=== PATIENT | female | born 1985 | race Caucasian/White ===

== ENCOUNTER 2018-03-03 11:51 | Observation (INO) | payer BC ==
[2018-03-03 12:53] LABS: Appearance,Urine Clear (Clear); Bilirubin,Urine Negative (Negative); Blood,Urine Negative (Negative); Color,Urine Yellow; Glucose,Urine (UA) Negative (Negative); Ketones,Urine Negative (Negative); Leukocyte Esterase,Urine Negative (Negative); Nitrite,Urine Negative (Negative); Protein,Urine Negative (Negative); Specific Gravity,Urine 1.014 (1.001-1.035); Urobilinogen,Urine <2.0 mg/dL (<2.0)
[2018-03-03 13:30] LABS: Basophils % (A) 0 %; Eosinophils # (A) 0.1 k/uL (0-0.7); Eosinophils % (A) 1 %; HCT 38.2 % (34.0-46.0); HGB 12.8 gm/dL (11.4-16.0); Lymphocytes # (A) 1.7 k/uL (1.0-4.8); Lymphocytes % (A) 15 %; MCH 31.4 pg (25.0-35.0); MCHC 33.4 g/dL (31.0-37.0); MCV 94.1 fL (80.0-100.0); Mean Platelet Volume 7.4; Monocytes # (A) 0.6 k/uL (0-1.0); Monocytes % (A) 5 %; Neutrophils # (A) 8.8 k/uL (1.3-7.7); Neutrophils % (A) 78 %; Platelet Count 194 k/uL (150-450); RBC 4.06 m/uL (3.80-5.40); RDW 13.1 % (11.5-15.5); WBC 11.3 k/uL (3.8-10.6)
--- NOTE | 2018-03-03 15:10 | US ---
EXAMINATION TYPE: US abdomen APPY DATE OF EXAM: 03/03/2018 COMPARISON: NONE CLINICAL HISTORY: RIGHT QUADRANT PAIN. RLQ pain x 2 days, patient is 23 weeks APPENDIX Appendix not seen with certainty at this time due to enlarged gravid uterus and overlying bowel. IMPRESSION: Nonvisualization of the appendix
--- NOTE | 2018-03-03 15:13 | US ---
EXAMINATION TYPE: US abdomen complete DATE OF EXAM: 03/03/2018 COMPARISON: NONE CLINICAL HISTORY: abdominal pain possible appendix. RLQ pain x 2 days, patient is 23 weeks , patient ate 4-5 hours prior to exam. EXAM MEASUREMENTS: Liver Length: 13.5 cm Gallbladder Wall: 0.2 cm CBD: 0.3 cm Spleen: 12.5 cm Right Kidney: 10.5 x 4.7 x 4.2 cm Left Kidney: 10.6 x 5.3 x 4.9 cm Difficult and limited study due to patient Pancreas: visualized portions wnl, limited by overlying midline bowel gas Liver: wnl Gallbladder: wnl Evidence for sonographic Barker's sign: no CBD: wnl Spleen: wnl Right Kidney: wnl Left Kidney: wnl Upper IVC: wnl Abd Aorta: visualized portions wnl, limited by overlying midline bowel gas No significant abnormality seen at this time to account for patient's clinical symptoms. The liver is homogenous. The intrahepatic portion of the IVC and proximal abdominal aorta are within normal limits. There is no evidence of cholelithiasis. Common bile duct is unremarkable. The visu alized portions of the pancreas are homogenous. The spleen is unremarkable. Kidneys are symmetric a nd free of hydronephrosis. No renal lesions are seen. IMPRESSION: Limited exam. No significant abnormalities evident.
--- NOTE | 2018-03-03 15:47 | US ---
EXAMINATION TYPE: US OB >= 14 wk fetus DATE OF EXAM: 03/03/2018 COMPARISON: None CLINICAL HISTORY: abdominal painRLQ pain x 2 days, 1, patient has history of fibroids. TECHNIQUE: Transabdominal (TA) GESTATIONAL AGE / DATING Physician Established: (22 weeks/5 days) EDC: 07/02/2018 Dates by LMP: Unknown Dates by First Scan: No previous here Dates by Current Scan: (21 weeks/4 days) EDC: 07/10/2018 SURVEY IUP: Single PLACENTA: Anterior PREVIA: No Previa NHAN: 12.5 cm Normal CERVICAL LENGTH (transabdominal: norm > 3.0cm): 3.4 cm BIOMETRY PRESENTATION: Vertex LIE: Longitudinal BPD: 5.2 cm 21 weeks / 5 days HC: 19.4 cm 21 weeks / 6 days AC: 16.9 cm 21 weeks / 6 days FL: 3.7 cm 21 weeks / 6 days ESTIMATED WEIGHT IN GRAMS: 457 grams ESTIMATED WEIGHT IN LBS/OZ: 1 lbs. 0 oz. WEIGHT PERCENTAGE BASED ON ESTABLISHED DATES: 11% HC/AC: 1.15 Normal FL/AC: 22.14 Normal HEART RATE: 153 bpm RHYTHM: Normal Viable single IUP measuring 21 weeks 4 days with a heart rate of 153bpm and an estimated delivery bob e of 07/10/2018, 7.0 x 5.2 x 5.4cm hypoechoic heterogeneous area right uterus, possible fibroid. IMPRESSION: Single viable intrauterine corresponding to ultrasound age of 21 weeks 4 days with an estim ated delivery date of 07/10/2018 by today's exam, limited survey. Fibroid uterus.
--- NOTE | 2018-03-03 17:18 | P.HPOB ---
History of Present Illness H&P Date: 03/03/18 Chief Complaint: Regnancy 22 weeks: Intractable pain Patient is a 32-year-old at 22 weeks gestation who arrived complaining of a one-day history of right lower quadrant pain. She relates that her pain began sometime yesterday and has progressed point where it was significantly were for 6-8 out of 10. At this time is approximately 4 out of 10. A thorough evaluation and workup has been done to try to elucidate the potential cause for pain. Initially due to where it was located a consideration for appendicitis versus kidney stone was made, however no white blood cell count was noted and there was no blood in her urine. Ultrasound was unable to visualize the appendix but there was no hiatal ureter or other sign of kidney stone. On evaluation her pain is predominantly located in the right lower to right middle abdomen, she does have some involuntary guarding initially when I push I thought she was guarding on to a great degree but after ultrasound shows a large 7 cm fibroid I suspect what was pushing on was the fibroid that felt firm and it was actually not her guarding is much as I had thought. There are no real peritoneal signs heal Was overall negative she did relate that it did increase her pain a little bit but not to any large margin and rebound was also negative. At this time I cannot completely exclude the possibility of an appendicitis we will repeat the CBC in the morning and do observation. However , I suspect she has some either degeneration of her fibroid uterus or a torsional partial torsion of that pedunculated fibroid. The fibroid in comparison to her last ultrasound is approximately 1 cm larger which is not what I would expect for uterus outgrowing its blood supply, however at this time the fibroid is the most likely source of her pain. We did discuss possible options of hopefully simply controlling her pain and allowing the fibroid to stabilize. We did discuss the possibility that should he continue to degenerate and cause severe unremitting pain is possible she would need surgical intervention. This would increase her risk for labor and other complications, and likely if that was needed would plan transfer to a maternal medicine or tertiary care center as a precaution. All the questions are answered for her at this time will plan observational care tonight heart tones were noted earlier today and no other abnormality is been found. Plan for repeat CBC in the morning as well. Past Medical History History of Any Multi-Drug Resistant Organisms: None Reported Smoking Status: Never smoker Medications and Allergies Home Medications Medication Instructions Recorded Confirmed Type Pnv No.95/Ferrous Fum/Folic AC 1 tab PO DAILY 03/03/18 03/03/18 History [ Multivitamin Tablet] Allergies Allergy/AdvReac Type Severity Reaction Status Date / Time No Known Allergies Allergy Verified 03/03/18 12:05 Exam Osteopathic Statement: *. No significant issues noted on an osteopathic structural exam other than those noted in the History and Physical/Consult. Vital Signs Temp Pulse Resp BP 03/03/18 12:06 98.2 F 78 16 100/65 Intake and Output 03/03/18 03/03/18 03/03/18 06:59 14:59 22:59 Other: Weight 68.492 kg - OBG Physical Exam Abdomen: diffuse tenderness Abdomen detail: right lower quadrant: tenderness Results Result Diagrams: 03/03/18 13:20 Abnormal Lab Results - Last 24 Hours (Table) 03/03/18 Range/Units 13:20 WBC 11.3 H (3.8-10.6) k/uL Neutrophils # 8.8 H (1.3-7.7) k/uL
[2018-03-03] MEDS ORDERED: Acetaminophen-Codeine 300-30mg TAB PO PRN (17:20)
[2018-03-03 17:39] VITALS: BMI 29.5
[2018-03-03 20:32] VITALS: RESP 16
[2018-03-03] MEDS ORDERED: ONDANSETRON 4 MG/2 ML VIAL IVP STA (20:52)
[2018-03-03] MEDS ORDERED: LACTATED RINGERS 1,000 ML IV ONE (21:00)
[2018-03-04] MEDS: LACTATED RINGERS 1,000 ML IV SCH ×2 (01:49→02:42)
[2018-03-04] MEDS ORDERED: ACETAMINOPHEN IV (For NPO) 1,000 MG in EMPTY BAG 1 BAG IVPB STA (02:48)
[2018-03-04 06:53] LABS: Basophils % (A) 0 %; Eosinophils # (A) 0.1 k/uL (0-0.7); Eosinophils % (A) 1 %; HCT 34.7 % (34.0-46.0); HGB 11.9 gm/dL (11.4-16.0); Lymphocytes # (A) 1.5 k/uL (1.0-4.8); Lymphocytes % (A) 15 %; MCH 32.1 pg (25.0-35.0); MCHC 34.3 g/dL (31.0-37.0); MCV 93.6 fL (80.0-100.0); Mean Platelet Volume 7.7; Monocytes # (A) 0.5 k/uL (0-1.0); Monocytes % (A) 5 %; Neutrophils # (A) 8.3 k/uL (1.3-7.7); Neutrophils % (A) 79 %; Platelet Count 183 k/uL (150-450); RBC 3.71 m/uL (3.80-5.40); RDW 13.1 % (11.5-15.5); WBC 10.5 k/uL (3.8-10.6)
[2018-03-04] MEDS: Acetaminophen-Codeine 300-30mg TAB PO PRN ×2 (08:53→14:02)
[2018-03-04 15:51] VITALS: BP 91/54; PULSE 80; TEMP 98.2
--- NOTE | 2018-03-04 16:14 | P.DS ---
Providers Date of admission: 03/03/18 17:07 Expected date of discharge: 03/04/18 Attending physician: Mich Harkins Primary care physician: Stated None Hospital Course: Patient seen and evaluated again this afternoon. I did see her clear this morning and pain was stable. Reviewed CBC was normal and no gross findings on ultrasound indicative of a kidney stone or other upper amounted. Most likely based on her symptomatology uterine her fibroid is degenerating or is pressing up against a an adjacent structure causing her pain. 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 As we are not doing anything more than pain control she would like to go home and try and manage this at home. She is aware to return should she have any changes in symptomatology worsening of pain fevers chills nausea or vomiting anything that would be concerning. At this time her vital signs are stable and she is afebrile. Her abdomen is soft does still have some pain but it seems direct just 1, #3 every 6 hours or so is controlling the pain relatively well. Prescription for Tylenol 3 is provided. She will use this judiciously and interspersed with regular Tylenol to help control her pain. If the pain worsens again she will come back, if it is stable or only slightly improved she' ll see me next week otherwise we'll follow up at her normal OB visit on 03 16. All the questions are answered for her at this time and she is stable for discharge this time. Patient Condition at Discharge: Stable Plan - Discharge Summary New Discharge Prescriptions: New Acetaminophen-Codeine 300-30mg [Tylenol #3] 1 tab PO Q4H PRN #30 tablet PRN Reason: Pain No Action Pnv No.95/Ferrous Fum/Folic AC [ Multivitamin Tablet] 1 tab PO DAILY Discharge Medication List Pnv No.95/Ferrous Fum/Folic AC [ Multivitamin Tablet] 1 tab PO DAILY [History] Acetaminophen-Codeine 300-30mg [Tylenol #3] 1 tab PO Q4H PRN #30 tablet [Rx] Follow up Appointment(s)/Referral(s): Mich Harkins DO [Doctor of Osteopathic Medicine] - 03/16/18 Activity/Diet/Wound Care/Special Instructions: Return for any worsening of pain Discharge Disposition: HOME SELF-CARE
== END 2018-03-04 16:45 | disposition home or self-care (01) ==
LOC: FBPOP 11:51 → 4FBP 17:07
PROVIDERS: ADMIT Obstetrics & Gynecology; ATTEND Obstetrics & Gynecology
DX: O26.892 Other specified pregnancy related conditions, second trimester (principal); R10.31 Right lower quadrant pain; D25.9 Leiomyoma of uterus, unspecified; O34.12 Maternal care for benign tumor of corpus uteri, second trimester; Z3A.23 23 weeks gestation of pregnancy
CPT/HCPCS: 99213; 96361 ×2; 96365; 96375; 85025 ×2; 81003; 76705; 76700; 76805; G0378 ×2; J2405; J0131

== ENCOUNTER 2018-06-13 16:26 | Inpatient (IN) | payer BC ==
[2018-06-13] MEDS ORDERED: DINOPROSTONE 10 MG INSERT.ER VAGINAL ONE (16:33)
[2018-06-13 16:54] VITALS: BMI 35.3
--- NOTE | 2018-06-13 17:15 | P.HPOB ---
History of Present Illness H&P Date: 06/13/18 Chief Complaint: Small for gestational age versus IUGR This patient is a pleasant 32-year-old 1 para 0 female estimated date of confinement 07/02/2018 estimated gestational age 37-2/7 weeks who presents to labor and delivery for two-stage induction of labor secondary to concern for intrauterine growth restriction an unfavorable cervix. Patient's care is per Dr. Harkins and she's been followed for decreased growth over the last month or so. Patient approximately a week ago had an ultrasound showed the baby to be at the 10th percentile and repeat ultrasound 7 days later showed interval growth however still approximately 11th percentile. She and Dr. Harkins discussed this in detail and plan at this time was to proceed with two- stage induction of labor due to concern of intrauterine growth restriction that is involving. Patient does have an unfavorable cervix and therefore presents for Cervidil placement Review of Systems Gastrointestinal: Reports heartburn Genitourinary: Reports Menstruation: Reports amenorrhea Past Medical History Past Medical History: Asthma Additional Past Medical History / Comment(s): Esophageal ulcers in childhood. History of Any Multi-Drug Resistant Organisms: None Reported Additional Past Surgical History / Comment(s): scope for ulcers in childhood Past Anesthesia/Blood Transfusion Reactions: No Reported Reaction Past Psychological History: No Psychological Hx Reported Smoking Status: Never smoker Past Alcohol Use History: None Reported Past Drug Use History: None Reported - Past Family History Mother Family Medical History: Mitral Valve Prolapse (MVP), Musculoskeletal Disorder Father Family Medical History: Diabetes Mellitus Medications and Allergies Home Medications Medication Instructions Recorded Confirmed Type Pnv No.95/Ferrous Fum/Folic AC 1 tab PO DAILY 03/03/18 03/03/18 History [ Multivitamin Tablet] Acetaminophen-Codeine 300-30mg 1 tab PO Q4H PRN #30 tablet 03/04/18 Rx [Tylenol #3] Allergies Allergy/AdvReac Type Severity Reaction Status Date / Time No Known Allergies Allergy Verified 06/13/18 16:32 Exam Vital Signs Temp Pulse Resp BP Pulse Ox 06/13/18 16:30 97.2 F L 96 18 123/76 98 Intake and Output 06/13/18 06/13/18 06/13/18 06:59 14:59 22:59 Other: Weight 82.1 kg - OBG Physical Exam Abdomen: bowel sounds normal, no diffuse tenderness, no bruit present, no guarding noted, no hepatomegaly, no splenomegaly, no mass Vulva: both: normal Vagina: normal moisture, no discharge Cervix: no lesion (Cervix is fingertip external os but closed internal os and uneffaced.), no discharge Uterus: enlarged (Fundal height is 36 cm) Results blood work shows she is O positive, hepatitis B negative, RPR nonreactive, rubella immune, HIV is nonreactive, Glucola was abnormal (normal three-hour gtt.), anatomy ultrasounds have been normal; Ultrasound done in the office on Thursday showed the baby to be vertex presentation 5 lbs. 2 oz. which is the 11th percentile with a normal amniotic fluid index. Assessment and Plan (1) 37 weeks gestation of Narrative/Plan: This is a pleasant 32-year-old 1 para 0 female 37-2/7 weeks gestation with concern for evolving intrauterine growth restriction and unfavorable cervix. 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 Plan is Cervidil placement and anticipate vaginal delivery. Current Visit: Yes Status: Acute Code(s): Z3A.37 - 37 WEEKS GESTATION OF SNOMED Code(s): 61757313 (2) Intrauterine growth restriction (IUGR) affecting care of mother Current Visit: Yes Status: Acute Code(s): O36.5990 - MATERN CARE FOR OTH OR SUSP POOR FETL GRTH, UNSP TRI, UNSP SNOMED Code(s): 937750016
[2018-06-14] MEDS ORDERED: CARBOPROST TROMETHAMINE 250 MCG/ML 1 ML AMP IM PRN (04:51)
[2018-06-14] MEDS ORDERED: LIDOCAINE 0.5% (PF) 5 MG/ML (50 ML SDV) SQ PRN (04:51)
[2018-06-14] MEDS ORDERED: METHYLERGONOVINE 0.2 MG/ML 1 ML AMP IM PRN (04:51)
[2018-06-14] MEDS ORDERED: TERBUTALINE 1 MG/ML VIAL SQ PRN (04:51)
[2018-06-14] MEDS ORDERED: OXYTOCIN 20 UNITS/1000 ML NS 1,000 ML IV SCH (04:51)
[2018-06-14] MEDS ORDERED: OXYTOCIN 10 UNIT/ML 1 ML VIAL IM PRN (04:51)
[2018-06-14] MEDS ORDERED: AMPICILLIN 2,000 MG in SODIUM CHLORIDE 0.9% 100 ML IVPB STA (05:00)
[2018-06-14] MEDS: LACTATED RINGERS 1,000 ML IV SCH ×2 (05:58→12:55)
[2018-06-14 06:12] LABS: Basophils # (A) 0.1 k/uL (0-0.2); Basophils % (A) 0 %; Eosinophils # (A) 0.1 k/uL (0-0.7); Eosinophils % (A) 1 %; HCT 36.9 % (34.0-46.0); HGB 12.5 gm/dL (11.4-16.0); Lymphocytes # (A) 1.8 k/uL (1.0-4.8); Lymphocytes % (A) 11 %; MCH 30.4 pg (25.0-35.0); MCHC 33.8 g/dL (31.0-37.0); Mean Platelet Volume 7.7; Monocytes # (A) 0.8 k/uL (0-1.0); Monocytes % (A) 5 %; Neutrophils # (A) 12.8 k/uL (1.3-7.7); Neutrophils % (A) 82 %; Platelet Count 238 k/uL (150-450); RDW 13.7 % (11.5-15.5); WBC 15.6 k/uL (3.8-10.6)
[2018-06-14] MEDS: BUTORPHANOL 1 MG/ML 1 ML VIAL IV PRN ×2 (08:15→10:23)
[2018-06-14] MEDS ORDERED: ONDANSETRON 4 MG/2 ML VIAL IVP PRN (09:12)
[2018-06-14] MEDS: AMPICILLIN 1,000 MG in SODIUM CHLORIDE 0.9% 50 ML IVPB SCH ×2 (10:33→14:23)
[2018-06-14] MEDS ORDERED: ROPIVACAINE 100 MG, fentaNYL (PF) 200 MCG in SODIUM CHLORIDE 0.9% 76 ML EPIDURAL ONE (13:44)
--- NOTE | 2018-06-14 17:05 | P.PROBDLV ---
Vaginal Delivery Note - . Vaginal Delivery Note: Patient progressed complete and pushing with spontaneous vaginal delivery of a viable male over an intact perineum. Following delivery of the head anterior posterior shoulders were easily delivered with gentle downward and upward traction. Once baby was fully delivered mouth nares were bulb suctioned and baby was placed on mother's abdomen where the umbilical cord was allowed to pulsate for 1 minute prior to clamping and cutting. Once this was accomplished nursery personnel was present to assume care. Placenta was then delivered intact and Pitocin was added to the IV. scores and weight are pending, but both mother and baby appear stable following delivery. All questions are answered for her at this time. Will send placenta for pathology for IUGR.
[2018-06-14] MEDS ORDERED: HYDROCORTISONE 2.5% RECTAL CREAM 30 GM TUBE RECTAL PRN (21:52)
[2018-06-14] MEDS ORDERED: BENZOCAINE/MENTHOL SPRAY 1 GM/SPRAY AEROSOL TOPICAL PRN (21:52)
[2018-06-14] MEDS ORDERED: SIMETHICONE 80 MG CHEWABLE PO PRN (21:52)
[2018-06-14] MEDS ORDERED: WITCH HAZEL 1 EACH MED..PAD TOPICAL PRN (21:52)
[2018-06-14] MEDS ORDERED: ZOLPIDEM 5 MG TAB PO PRN (21:52)
[2018-06-14] MEDS ORDERED: LANOLIN CREAM 5 GM TUBE TOPICAL PRN (21:52)
[2018-06-14] MEDS: IBUPROFEN 600 MG TAB PO PRN (22:03)
[2018-06-15] MEDS: AMPICILLIN 1,000 MG in SODIUM CHLORIDE 0.9% 50 ML IVPB SCH (01:15)
[2018-06-15] MEDS: LACTATED RINGERS 1,000 ML IV SCH (01:16)
[2018-06-15] MEDS: ACETAMINOPHEN TAB 325 MG TAB PO PRN ×3 (01:22→21:22)
[2018-06-15] MEDS: IBUPROFEN 600 MG TAB PO PRN ×3 (06:31→18:17)
[2018-06-15 07:43] LABS: Basophils # (A) 0.1 k/uL (0-0.2); Basophils % (A) 0 %; Eosinophils # (A) 0.1 k/uL (0-0.7); Eosinophils % (A) 1 %; HCT 32.2 % (34.0-46.0); HGB 10.5 gm/dL (11.4-16.0); Lymphocytes # (A) 1.8 k/uL (1.0-4.8); Lymphocytes % (A) 13 %; MCH 29.9 pg (25.0-35.0); MCHC 32.6 g/dL (31.0-37.0); MCV 91.9 fL (80.0-100.0); Mean Platelet Volume 8.8; Monocytes # (A) 0.9 k/uL (0-1.0); Monocytes % (A) 7 %; Neutrophils # (A) 10.8 k/uL (1.3-7.7); Neutrophils % (A) 78 %; Platelet Count 188 k/uL (150-450); RDW 14.1 % (11.5-15.5); WBC 13.8 k/uL (3.8-10.6)
--- NOTE | 2018-06-15 08:11 | P.PNOBGVD ---
Subjective - Subjective Principal diagnosis: day 1 Interval history: Overall doing very well. She is involuting, voiding, and she is tolerating her diet. She voices no complaints. Patient reports: Reports appetite normal, Reports voiding normally, Reports pain well controlled, Reports ambulating normally : doing well Objective - Latest Vital Signs Latest vital signs: Vital Signs Temp Pulse Resp BP Pulse Ox 06/15/18 00:00 98.5 F 82 18 100/62 97 06/14/18 20:00 98.2 F 90 18 120/63 95 06/14/18 16:57 97.9 F 99 16 118/60 06/14/18 16:27 97.9 F 96 16 102/58 06/14/18 16:00 98.0 F 98 16 118/58 06/14/18 15:57 88 16 112/60 06/14/18 15:42 97.9 F 100 16 112/63 06/14/18 15:27 100 16 96/52 06/14/18 15:12 93 16 101/68 06/14/18 14:57 97.7 F 83 16 110/67 Intake and Output 06/14/18 06/15/18 06/15/18 22:59 06:59 14:59 Intake Total 250 600 Output Total 300 Balance -50 600 Intake: Oral 250 600 Output: Estimated Blood Loss 300 Other: # Voids 2 - Exam Lungs: bilateral: normal Chest: Normal S1, Normal S2 Extremities: Present: normal Abdomen: Present: normal appearance, soft Uterus: Present: normal, firm - Labs Labs: Abnormal Lab Results - Last 24 Hours (Table) 06/15/18 Range/Units 06:29 WBC 13.8 H (3.8-10.6) k/uL RBC 3.50 L (3.80-5.40) m/uL Hgb 10.5 L (11.4-16.0) gm/dL Hct 32.2 L (34.0-46.0) % Neutrophils # 10.8 H (1.3-7.7) k/uL
[2018-06-15] MEDS: SENNOSIDES-DOCUSATE SODIUM 1 EACH TAB PO SCH ×2 (08:37→21:59)
[2018-06-16] MEDS: SENNOSIDES-DOCUSATE SODIUM 1 EACH TAB PO SCH ×2 (02:23→10:50)
[2018-06-16] MEDS: IBUPROFEN 600 MG TAB PO PRN ×2 (02:23→07:58)
--- NOTE | 2018-06-16 08:51 | P.DS ---
Providers Date of admission: 06/13/18 16:26 Expected date of discharge: 06/16/18 Attending physician: Mich Harkins Primary care physician: Maria Luisa [facility] Course: Saima is doing very well day 2. She is involuting, voiding, and she is tolerating her diet. She voices no complaint. Vital signs are stable and afebrile. Heart regular, lungs clear, extremities without pain. Abdomen soft uterus is firm and lochia is reported light. Baby is likely going to have to stay due to jaundiced but she is stable for discharge this time. Prescription for Motrin was forwarded to her pharmacy. All the questions were answered for her prior to her discharge discharge instructions were thoroughly reviewed. She will follow up with me in 6 weeks. Patient Condition at Discharge: Good Plan - Discharge Summary New Discharge Prescriptions: New Ibuprofen [Motrin] 600 mg PO Q6HR PRN #30 tab PRN Reason: Pain No Action Pnv No.95/Ferrous Fum/Folic AC [ Multivitamin Tablet] 1 tab PO DAILY Acetaminophen-Codeine 300-30mg [Tylenol #3] 1 tab PO Q4H PRN #30 tablet PRN Reason: Pain Discharge Medication List Pnv No.95/Ferrous Fum/Folic AC [ Multivitamin Tablet] 1 tab PO DAILY [History] Acetaminophen-Codeine 300-30mg [Tylenol #3] 1 tab PO Q4H PRN #30 tablet [Rx] Ibuprofen [Motrin] 600 mg PO Q6HR PRN #30 tab 06/16/18 [Rx] Follow up Appointment(s)/Referral(s): Mich Harkins DO [Doctor of Osteopathic Medicine] - 6 Weeks Activity/Diet/Wound Care/Special Instructions: No heavy lifting, limit stairs and driving, and pelvic rest. If any high temperatures, heavy bleeding, or severe pain call my office Discharge Disposition: HOME SELF-CARE
[2018-06-16 16:13] VITALS: BP 98/62; PULSE 82; RESP 16; TEMP 98
== END 2018-06-16 19:00 | disposition home or self-care (01) | DRG 807 ==
LOC: 4FBP 16:26
PROVIDERS: ADMIT Obstetrics & Gynecology; ATTEND Obstetrics & Gynecology
PROC: 3E0P7VZ Introduction of Hormone into Female Reproductive, Via Natural or Artificial Opening (ICD-10-PCS; 2018-06-13)
PROC: 10E0XZZ Delivery of Products of Conception, External Approach (ICD-10-PCS; principal; 2018-06-14)
PROC: 10907ZC Drainage of Amniotic Fluid, Therapeutic from Products of Conception, Via Natural or Artificial Opening (ICD-10-PCS; 2018-06-14)
PROC: 3E033VJ Introduction of Other Hormone into Peripheral Vein, Percutaneous Approach (ICD-10-PCS; 2018-06-14)
DX: O36.5930 Maternal care for other known or suspected poor fetal growth, third trimester, not applicable or unspecified (principal); Z37.0 Single live birth; O99.52 Diseases of the respiratory system complicating childbirth; J45.909 Unspecified asthma, uncomplicated; Z3A.37 37 weeks gestation of pregnancy; Z87.19 Personal history of other diseases of the digestive system; Z83.3 Family history of diabetes mellitus
CPT/HCPCS: 85025; 86850; 86900; 86901; 88307

== ENCOUNTER 2020-01-02 06:34 | Inpatient (IN) | payer BC ==
[2020-01-02] MEDS ORDERED: CARBOPROST TROMETHAMINE 250 MCG/ML 1 ML AMP IM PRN (06:56)
[2020-01-02] MEDS ORDERED: METHYLERGONOVINE 0.2 MG/ML 1 ML AMP IM PRN (06:56)
[2020-01-02] MEDS ORDERED: OXYTOCIN 10 UNIT/ML 1 ML VIAL IM PRN (06:56)
[2020-01-02] MEDS ORDERED: TERBUTALINE 1 MG/ML VIAL SQ PRN (06:56)
[2020-01-02] MEDS ORDERED: LIDOCAINE 0.5% (PF) 5 MG/ML (50 ML SDV) SQ PRN (06:56)
[2020-01-02] MEDS: LACTATED RINGERS 1,000 ML IV SCH ×2 (07:32→21:15)
[2020-01-02] MEDS: OXYTOCIN 30 UNITS/500 ML NS 30 UNIT in SALINE 1 500ML.BAG IV SCH (07:33)
[2020-01-02 07:38] LABS: Basophils # (A) 0.1 k/uL (0-0.2); Basophils % (A) 1 %; Eosinophils # (A) 0.1 k/uL (0-0.7); Eosinophils % (A) 1 %; HCT 38.1 % (34.0-46.0); HGB 12.8 gm/dL (11.4-16.0); Lymphocytes # (A) 1.9 k/uL (1.0-4.8); Lymphocytes % (A) 20 %; MCH 31.2 pg (25.0-35.0); MCHC 33.6 g/dL (31.0-37.0); MCV 92.7 fL (80.0-100.0); Mean Platelet Volume 8.7; Monocytes # (A) 0.5 k/uL (0-1.0); Monocytes % (A) 5 %; Neutrophils # (A) 7.2 k/uL (1.3-7.7); Neutrophils % (A) 72 %; Platelet Count 171 k/uL (150-450); RBC 4.11 m/uL (3.80-5.40); WBC 9.9 k/uL (3.8-10.6)
[2020-01-02] MEDS ORDERED: BUTORPHANOL 1 MG/ML 1 ML VIAL IV PRN (11:58)
[2020-01-02] MEDS ORDERED: ROPIVACAINE 100 MG, fentaNYL (PF) 200 MCG in SODIUM CHLORIDE 0.9% 76 ML EPIDURAL ONE (12:44)
[2020-01-02] MEDS ORDERED: diphenhydrAMINE 50 MG/ML 1 ML VIAL IVP PRN ×2 (13:45)
[2020-01-02] MEDS ORDERED: LANOLIN CREAM 5 GM TUBE TOPICAL PRN (13:45)
[2020-01-02] MEDS ORDERED: OXYTOCIN 20 UNITS/1000 ML NS 1,000 ML IV SCH (13:45)
[2020-01-02] MEDS ORDERED: ACETAMINOPHEN TAB 325 MG TAB PO PRN (13:45)
[2020-01-02] MEDS ORDERED: HYDROCORTISONE 2.5% RECTAL CREAM 30 GM TUBE RECTAL PRN (13:45)
[2020-01-02] MEDS ORDERED: diphenhydrAMINE 25 MG CAP PO PRN (13:45)
[2020-01-02] MEDS ORDERED: SIMETHICONE 80 MG CHEWABLE PO PRN (13:45)
[2020-01-02] MEDS ORDERED: ZOLPIDEM 5 MG TAB PO PRN (13:45)
[2020-01-02] MEDS ORDERED: BENZOCAINE/MENTHOL SPRAY 1 GM/SPRAY AEROSOL TOPICAL PRN (13:45)
[2020-01-02] MEDS ORDERED: diphenhydrAMINE 50 MG CAP PO PRN (13:45)
[2020-01-02] MEDS ORDERED: MEASLES-MUMPS-RUBELLA VACC/PF 12,500 UNIT/0.5 ML VIAL SQ ONE (13:45)
--- NOTE | 2020-01-02 13:48 | P.HPOB ---
History of Present Illness H&P Date: 01/02/20 Chief Complaint: Intrauterine at term: IUGR Patient is a 34-year-old at 37 weeks gestation arise for induction due to IUGR. She is been followed very closely and has had her baby falling off the growth scale from very early onset was only 13 percentile by 32 weeks and has consistently fallen off. She was seen by maternal- medicine and was noted to be in the 8th percentile at 36 weeks therefore an induction of labor has been advised and we're moving for same. She plans to use epidural for analgesia. Pitocin augmentation of labor is going to be initiated she is dilated to 2 cm artificial rupture membranes was performed and clear fluid is no francoise. A category 1 tracing is noted. Other pertinent labs O+ blood type, Rh and it was negative, rubella is nonimmune, hepatitis surface antigen was negative. No other concerns or issues with the and she is feeling well at this time. Past Medical History Past Medical History: Asthma Additional Past Medical History / Comment(s): Esophageal ulcers in childhood. History of Any Multi-Drug Resistant Organisms: None Reported Additional Past Surgical History / Comment(s): scope for ulcers in childhood Past Anesthesia/Blood Transfusion Reactions: No Reported Reaction Past Psychological History: No Psychological Hx Reported Smoking Status: Never smoker Past Alcohol Use History: None Reported Past Drug Use History: None Reported - Past Family History Mother Family Medical History: Mitral Valve Prolapse (MVP), Musculoskeletal Disorder Father Family Medical History: Diabetes Mellitus Medications and Allergies Home Medications Medication Instructions Recorded Confirmed Type Pnv No.95/Ferrous Fum/Folic AC 1 tab PO DAILY 03/03/18 01/02/20 History [ Multivitamin Tablet] Allergies Allergy/AdvReac Type Severity Reaction Status Date / Time No Known Allergies Allergy Verified 01/02/20 06:56 Exam Osteopathic Statement: *. No significant issues noted on an osteopathic structural exam other than those noted in the History and Physical/Consult. Vital Signs Temp Pulse Resp BP Pulse Ox 01/02/20 07:09 97.2 F L 85 17 116/70 97 Intake and Output 01/01/20 01/02/20 01/02/20 22:59 06:59 14:59 Other: Weight 79.832 kg 79.832 kg - OBG Physical Exam Breast: both: normal (no masses) Abdomen: bowel sounds normal, no diffuse tenderness, no bruit present, no guarding noted, no hepatomegaly, no splenomegaly, no mass Vulva: both: normal Vagina: normal moisture, no discharge Cervix: no lesion, no discharge Uterus: normal size, normal contour Adnexa: both: normal Anus/Rectum: normal perianal skin, no rectal mass, no hemorrhoids, heme negative Results Result Diagrams: 01/02/20 07:10
--- NOTE | 2020-01-02 13:49 | P.PROBDLV ---
Vaginal Delivery Note - . Vaginal Delivery Note: Patient progressed complete and pushing with spontaneous vaginal delivery of a viable male over a first-degree perineal laceration. Following delivery of the head anterior posterior shoulders were easily delivered with gentle sideward traction. Baby was delivered from left occiput anterior position. Once baby was fully delivered mouth nares were bulb suctioned. Unit was then placed on mother's abdomen where the umbilical cord was allowed to pulsate for 4 5 seconds prior to clamping and cutting. Once this was accomplished nursery personnel was present and assumed care. Placenta was then delivered intact Pitocin was added to the IV. First repair laceration was then reapproximated with 3-0 Vicryl following 1% Xylocaine for analgesia. scores were 9 and 9 at one and 5 minutes respectively and the weight was 4 lbs. 10 oz. Mother and baby are both stable findings delivery.
[2020-01-02] MEDS: SENNOSIDES-DOCUSATE SODIUM 1 EACH TAB PO SCH (22:18)
[2020-01-03] MEDS: IBUPROFEN 600 MG TAB PO PRN ×3 (01:14→17:23)
[2020-01-03] MEDS: LACTATED RINGERS 1,000 ML IV SCH ×2 (02:42→19:40)
[2020-01-03] MEDS: OXYTOCIN 30 UNITS/500 ML NS 30 UNIT in SALINE 1 500ML.BAG IV SCH (02:43)
[2020-01-03 06:12] LABS: Basophils # (A) 0.1 k/uL (0-0.2); Basophils % (A) 1 %; Eosinophils # (A) 0.1 k/uL (0-0.7); Eosinophils % (A) 1 %; HCT 35.1 % (34.0-46.0); HGB 11.7 gm/dL (11.4-16.0); Lymphocytes # (A) 2.1 k/uL (1.0-4.8); Lymphocytes % (A) 17 %; MCH 31.5 pg (25.0-35.0); MCHC 33.5 g/dL (31.0-37.0); Mean Platelet Volume 8.7; Monocytes # (A) 0.6 k/uL (0-1.0); Monocytes % (A) 5 %; Neutrophils # (A) 9.7 k/uL (1.3-7.7); Neutrophils % (A) 76 %; Platelet Count 168 k/uL (150-450); RBC 3.73 m/uL (3.80-5.40); RDW 13.1 % (11.5-15.5); WBC 12.8 k/uL (3.8-10.6)
--- NOTE | 2020-01-03 08:48 | P.PNOBGVD ---
Subjective - Subjective Principal diagnosis: day 1 Interval history: Overall Kate is doing very well. She is ambulating, voiding tolerating her diet. She voices no complaints. However, the baby is in special care nursery and is requiring additional care. We'll plan continue observational care for now. Patient reports: Reports appetite normal, Reports voiding normally, Reports pain well controlled, Reports ambulating normally : in NICU Objective - Latest Vital Signs Latest vital signs: Vital Signs Temp Pulse Resp BP 01/03/20 07:59 98.0 F 89 16 101/70 01/02/20 23:40 98.0 F 66 16 94/60 01/02/20 20:00 98.3 F 71 16 102/59 01/02/20 16:01 72 17 99/63 01/02/20 15:15 65 16 97/62 01/02/20 14:45 73 17 102/58 01/02/20 14:30 77 16 101/57 01/02/20 14:15 72 16 92/50 01/02/20 14:00 67 16 84/51 01/02/20 13:45 98.1 F 71 17 88/49 Intake and Output 01/02/20 01/03/20 01/03/20 22:59 06:59 14:59 Intake Total 120 Balance 120 Intake: Oral 120 Other: # Voids 1 2 2 - Exam Lungs: bilateral: normal Chest: Normal S1, Normal S2 Extremities: Present: normal Abdomen: Present: normal appearance, soft Uterus: Present: normal, firm - Labs Labs: Abnormal Lab Results - Last 24 Hours (Table) 01/03/20 Range/Units 05:44 WBC 12.8 H (3.8-10.6) k/uL RBC 3.73 L (3.80-5.40) m/uL Neutrophils # 9.7 H (1.3-7.7) k/uL
[2020-01-03] MEDS ORDERED: diphenhydrAMINE 50 MG/ML 1 ML VIAL IVP PRN ×2 (08:49)
[2020-01-03] MEDS: SENNOSIDES-DOCUSATE SODIUM 1 EACH TAB PO SCH ×2 (16:49→19:41)
[2020-01-04] MEDS: IBUPROFEN 600 MG TAB PO PRN (05:36)
--- NOTE | 2020-01-04 08:57 | P.DS ---
Providers Date of admission: 01/02/20 06:43 Expected date of discharge: 01/04/20 Attending physician: Mich Harkins Primary care physician: [facility] Course: Saima is doing very well day 2. She is ambulating, voiding and tolerating her diet. She voices no complaints. Vital signs are stable and she is afebrile. Heart regular, lungs clear, extremities without pain. She is stable for discharge. Baby is still in special care nursery was some discussion on possible transfer to [facility] center. We'll have everything ready for discharge for her if that happens. Otherwise all discharge instructions were thoroughly reviewed and all questions were answered for her prior to her discharge. She is stable for discharge this time. Patient Condition at Discharge: Good Plan - Discharge Summary New Discharge Prescriptions: No Action Pnv No.95/Ferrous Fum/Folic AC [ Multivitamin Tablet] 1 tab PO DAILY Discharge Medication List Pnv No.95/Ferrous Fum/Folic AC [ Multivitamin Tablet] 1 tab PO DAILY 03/03/18 [History] Follow up Appointment(s)/Referral(s): Mich Harkins DO [Doctor of Osteopathic Medicine] - 6 Weeks Activity/Diet/Wound Care/Special Instructions: No heavy lifting, limit stairs and driving, and pelvic rest. If any high temperatures, heavy bleeding, or severe pain call my office Discharge Disposition: HOME SELF-CARE
[2020-01-04 11:12] VITALS: BP 103/69; PULSE 67; RESP 18; TEMP 97.2
== END 2020-01-04 14:30 | disposition home or self-care (01) | DRG 807 ==
LOC: 4FBP 06:43
PROVIDERS: ADMIT Obstetrics & Gynecology; ATTEND Obstetrics & Gynecology
PROC: 10E0XZZ Delivery of Products of Conception, External Approach (ICD-10-PCS; principal; 2020-01-02)
PROC: 3E033VJ Introduction of Other Hormone into Peripheral Vein, Percutaneous Approach (ICD-10-PCS; 2020-01-02)
PROC: 10907ZC Drainage of Amniotic Fluid, Therapeutic from Products of Conception, Via Natural or Artificial Opening (ICD-10-PCS; 2020-01-02)
PROC: 0HQ9XZZ Repair Perineum Skin, External Approach (ICD-10-PCS; 2020-01-02)
PROC: 3E0R3BZ Introduction of Anesthetic Agent into Spinal Canal, Percutaneous Approach (ICD-10-PCS; 2020-01-02)
DX: O36.5930 Maternal care for other known or suspected poor fetal growth, third trimester, not applicable or unspecified (principal); Z37.0 Single live birth; O70.0 First degree perineal laceration during delivery; J45.909 Unspecified asthma, uncomplicated; O99.52 Diseases of the respiratory system complicating childbirth; Z3A.37 37 weeks gestation of pregnancy; Z79.899 Other long term (current) drug therapy; Z87.19 Personal history of other diseases of the digestive system; Z83.3 Family history of diabetes mellitus; Z82.49 Family history of ischemic heart disease and other diseases of the circulatory system
CPT/HCPCS: 85025; 86850; 86900; 86901; 88307

== ENCOUNTER 2021-08-17 08:35 | Outpatient (CLI) | payer BC ==
[2021-08-17] MEDS ORDERED: BETAMET ACET-BETAMETH SOD PHOS 6 MG/ML MDV IM ONE (09:00)
== END 2021-08-17 09:05 | disposition home or self-care (01) ==
LOC: FBPOP 08:35
PROVIDERS: ATTEND Obstetrics & Gynecology
DX: O41.0 Oligohydramnios (principal); O36.5930 Maternal care for other known or suspected poor fetal growth, third trimester, not applicable or unspecified; Z3A.36 36 weeks gestation of pregnancy; Z88.1 Allergy status to other antibiotic agents
CPT/HCPCS: 59025; 96372; J0702

== ENCOUNTER 2021-08-20 05:35 | Inpatient (IN) | payer BC ==
--- NOTE | 2021-08-19 12:52 | P.HPOB ---
History of Present Illness H&P Date: 08/19/21 Chief Complaint: Small for gestational age and low amniotic fluid index This patient is a pleasant 36-year-old 3 para 2 female estimated date of confinement 09/08/2021 estimated gestational age 37-2/7 weeks who presents to labor and delivery for induction due to small for gestational age and low amniotic fluid. Patient's history such as that she's had 2 intrauterine growth restricted babies in the past. She's been followed closely for this and has had decreased growth but more notably she's had a decreased amniotic fluid Hardeep 6.4 recommendations at this time is to proceed with delivery due to this clinical finding. Patient was going to maternal- medicine as well and has been given Celestone approximately 1 week ago. Patient's been watched by nonstress testing and biophysical profiles. She now presents for delivery. Review of Systems Genitourinary: Reports Menstruation: Reports amenorrhea Past Medical History Past Medical History: Asthma Additional Past Medical History / Comment(s): Esophageal ulcers in childhood. History of Any Multi-Drug Resistant Organisms: None Reported Past Surgical History: No Surgical Hx Reported Additional Past Surgical History / Comment(s): scope for ulcers in childhood Past Anesthesia/Blood Transfusion Reactions: No Reported Reaction Past Psychological History: No Psychological Hx Reported Smoking Status: Never smoker Past Alcohol Use History: None Reported Past Drug Use History: None Reported - Past Family History Mother Family Medical History: Mitral Valve Prolapse (MVP), Musculoskeletal Disorder Father Family Medical History: Diabetes Mellitus Medications and Allergies Home Medications Medication Instructions Recorded Confirmed Type Pnv No.95/Ferrous Fum/Folic AC 1 tab PO DAILY 03/03/18 08/17/21 History [ Multivitamin Tablet] Allergies Allergy/AdvReac Type Severity Reaction Status Date / Time No Known Allergies Allergy Verified 08/17/21 08:46 Exam - OBG Physical Exam Abdomen: bowel sounds normal, no diffuse tenderness, no bruit present, no guarding noted, no hepatomegaly, no splenomegaly, no mass Vulva: both: normal Cervix: no lesion (Cervix is 2 cm dilated and effaced), no discharge Uterus: enlarged (Fundal height 37 cm) Results blood work shows she is O positive, rubella immune, RPR nonreactive, HIV is nonreactive, hepatitis B is negative, Glucola was normal, group B strep was positive, most recent ultrasound showed estimated weight at 5 lbs. 8 oz. with a amniotic fluid index of 6.4 Assessment and Plan Assessment: This is a pleasant 36-year-old 3 para 2 female 37-2/7 weeks gestation with known small for gestational age and low amniotic fluid index for induction of labor. Patient also has a positive group B strep culture. Plan is antibiotic prophylaxis, Pitocin induction of labor, and anticipate vaginal delivery. (1) Small for gestational age fetus Status: Acute Code(s): IAG9479 - SNOMED Code(s): 154550494 (2) Low amniotic fluid Status: Acute Code(s): O41.00X0 - OLIGOHYDRAMNIOS, UNSP TRIMESTER, NOT APPLICABLE OR UNSP SNOMED Code(s): 01894840 (3) Group B streptococcal carriage complicating Status: Acute Code(s): O99.820 - STREPTOCOCCUS B CARRIER STATE COMPLICATING SNOMED Code(s): 231886617542744 (4) 37 weeks gestation of Status: Acute Code(s): Z3A.37 - 37 WEEKS GESTATION OF SNOMED Code(s): 85047562 (5) Elderly multigravida Status: Acute Code(s): O09.529 - SUPERVISION OF ELDERLY MULTIGRAVIDA, UNSPECIFIED TRIMESTER SNOMED Code(s): 738728197
[2021-08-20] MEDS ORDERED: OXYTOCIN 10 UNIT/ML 1 ML VIAL IM PRN (05:50)
[2021-08-20] MEDS ORDERED: OXYTOCIN 30 UNITS/500 ML NS 30 UNIT in SALINE 1 500ML.BAG IV SCH ×2 (05:50→12:24)
[2021-08-20] MEDS ORDERED: TERBUTALINE 1 MG/ML VIAL SQ PRN (05:50)
[2021-08-20] MEDS ORDERED: CARBOPROST TROMETHAMINE 250 MCG/ML 1 ML AMP IM PRN (05:50)
[2021-08-20] MEDS ORDERED: LIDOCAINE 1% (PF) 10 MG/ML (30 ML SDV) SQ PRN (05:50)
[2021-08-20] MEDS ORDERED: METHYLERGONOVINE 0.2 MG/ML 1 ML AMP IM PRN (05:50)
[2021-08-20] MEDS ORDERED: AMPICILLIN 2,000 MG in SODIUM CHLORIDE 0.9% 100 ML IVPB ONE (06:00)
[2021-08-20 06:08] LABS: Basophils % (A) 0 %; Eosinophils # (A) 0.1 k/uL (0-0.7); Eosinophils % (A) 1 %; HCT 37.9 % (34.0-46.0); HGB 12.7 gm/dL (11.4-16.0); Lymphocytes # (A) 2.4 k/uL (1.0-4.8); Lymphocytes % (A) 18 %; MCH 31.8 pg (25.0-35.0); MCHC 33.6 g/dL (31.0-37.0); MCV 94.6 fL (80.0-100.0); Mean Platelet Volume 8.5; Monocytes # (A) 0.8 k/uL (0-1.0); Monocytes % (A) 6 %; Neutrophils # (A) 9.6 k/uL (1.3-7.7); Neutrophils % (A) 72 %; Platelet Count 231 k/uL (150-450); RDW 13.3 % (11.5-15.5); WBC 13.2 k/uL (3.8-10.6)
[2021-08-20] MEDS: LACTATED RINGERS 1,000 ML IV SCH ×3 (06:18→10:57)
[2021-08-20] MEDS ORDERED: CLINDAMYCIN 900 MG in DEXTROSE 5% IN WATER 50 ML IVPB STA ×2 (06:33)
--- NOTE | 2021-08-20 06:36 | P.PN ---
Progress Note - Text Progress Note Date: 08/20/21 I was called see the patient in regards to possible seizure. Shortly after the patient's IV antibiotics were started she had an episode where she antibody contracture and eyes rolled back. Patient had no incontinence. Vital signs are stable. This appears to be related to her IV antibiotics. To be cautious we're going stopped IV Begin Clindamycin also going to check some electrolytes and glucose on her at this time
[2021-08-20 07:15] LABS: ALT 21 U/L (4-34); AST 28 U/L (14-36); African American GFR (CKD) >90 (>60 ml/min/1.73 sqM); Albumin 3.2 g/dL (3.5-5.0); Alkaline Phosphatase 112 U/L (38-126); Anion Gap 10 mmol/L; Blood Urea Nitrogen 9 mg/dL (7-17); Calcium 8.4 mg/dL (8.4-10.2); Carbon Dioxide 19 mmol/L (22-30); Chloride 107 mmol/L (98-107); Glucose 87 mg/dL (74-99); Non-African American GFR(CKD) >90 (>60 ml/min/1.73 sqM); Potassium 3.9 mmol/L (3.5-5.1); Sodium 136 mmol/L (137-145); Total Bilirubin 0.4 mg/dL (0.2-1.3); Total Protein 6.4 g/dL (6.3-8.2)
[2021-08-20] MEDS ORDERED: AMPICILLIN 1,000 MG in SODIUM CHLORIDE 0.9% 50 ML IVPB SCH (10:00)
[2021-08-20] MEDS ORDERED: LANOLIN CREAM 5 GM TUBE TOPICAL PRN (12:24)
[2021-08-20] MEDS ORDERED: ACETAMINOPHEN TAB 325 MG TAB PO PRN (12:24)
[2021-08-20] MEDS ORDERED: bisacodyL 10 MG SUPP RECTAL PRN (12:24)
[2021-08-20] MEDS ORDERED: ZOLPIDEM 5 MG TAB PO PRN (12:24)
[2021-08-20] MEDS ORDERED: BENZOCAINE/MENTHOL SPRAY 1 GM/SPRAY AEROSOL TOPICAL PRN (12:24)
[2021-08-20] MEDS ORDERED: HYDROCORTISONE 2.5% RECTAL CREAM 30 GM TUBE RECTAL PRN (12:24)
[2021-08-20] MEDS ORDERED: diphenhydrAMINE 50 MG/ML 1 ML VIAL IVP PRN (12:24)
[2021-08-20] MEDS ORDERED: diphenhydrAMINE 25 MG CAP PO PRN (12:24)
[2021-08-20] MEDS ORDERED: SIMETHICONE 80 MG CHEWABLE PO PRN (12:24)
--- NOTE | 2021-08-20 12:37 | P.PROBDLV ---
Vaginal Delivery Note - . Vaginal Delivery Note: Normal vaginal delivery viable male infant Apgars 9 and 9 delivery time is 1214 hrs. Please see dictated H&P for intimate details of this patient's admission. Brief summary this is a pleasant 36-year-old 3 para 2 female 37-2/7 weeks admitted to labor and delivery for induction of labor secondary to low amniotic fluid and small for gestational age. Patient is admitted she is 2-3 cm dilated has artificial rupture membranes for clear fluid. Labor is induced with Pitocin per protocol of note she is given a dose of ampicillin but immediately upon infusion she has some type of ALLERGIC reaction that was seizure-like. This completely resolved and no further reaction was noted. Patient was labor progresses and she does get an epidural for pain control. Patient gets to complete pushes the head to the perineum. Posterior perineum is supported and we have controlled delivery of the infant's head over the intact perineum. 's head is straight occiput anterior presentation. Mouth and nares are bulb suctioned. There is a loose nuchal cord and a are presenting with the head is well the spontaneously reduce and patient delivers this viable male infant Apgars 9 and 9 delivery time is 1214 hrs. After delivery of the the umbilical cord was immediately clamped and cut due to history of jaundice with a previous babies. The placenta is then spontaneously delivered intact. Estimated blood loss is 100 mL. There is a small first-degree posterior laceration is repaired with 3-0 Vicryl in the usual fashion. Excellent reapproximation is noted. All counts are correct 3. There are no complications. and mother are stable delivery room.
[2021-08-20] MEDS ORDERED: ROPIVACAINE 100 MG, fentaNYL (PF). 200 MCG in SODIUM CHLORIDE 0.9% 76 ML EPIDURAL ONE (12:56)
[2021-08-20] MEDS: SENNOSIDES-DOCUSATE SODIUM 1 EACH TAB PO SCH ×2 (16:58→20:10)
[2021-08-20] MEDS: IBUPROFEN 600 MG TAB PO PRN (20:10)
[2021-08-21] MEDS: IBUPROFEN 600 MG TAB PO PRN ×2 (04:15→11:55)
--- NOTE | 2021-08-21 06:25 | P.PNOBGVD ---
Subjective - Subjective Patient reports: Reports appetite normal, Reports voiding normally, Reports pain well controlled, Reports ambulating normally : doing well Objective - Latest Vital Signs Latest vital signs: Vital Signs Temp Pulse Resp BP Pulse Ox 08/21/21 04:00 97.8 F 86 16 98/62 08/21/21 00:00 97.9 F 89 16 94/61 08/20/21 20:00 97.9 F 89 16 106/71 08/20/21 16:00 98.0 F 90 16 96/59 97 08/20/21 14:29 91 16 100/58 08/20/21 13:59 99 16 102/56 08/20/21 13:29 85 16 100/56 08/20/21 13:14 94 16 107/56 08/20/21 12:59 88 16 104/51 08/20/21 12:44 83 16 99/52 08/20/21 12:29 81 16 99/50 Intake and Output 08/20/21 08/20/21 08/21/21 14:59 22:59 06:59 Intake Total 2925 Output Total 520 Balance 2405 Intake: IV 2300 Oral 625 Output: Urine 400 Output, Quantitative 120 Blood Loss Other: # Voids 1 2 2 - Exam Lungs: bilateral: normal Chest: Normal S1, Normal S2 Extremities: Present: normal Abdomen: Present: normal appearance, soft Uterus: Present: normal, firm - Labs Labs: Abnormal Lab Results - Last 24 Hours (Table) 08/20/21 Range/Units 06:48 Sodium 136 L (137-145) mmol/L Carbon Dioxide 19 L (22-30) mmol/L Albumin 3.2 L (3.5-5.0) g/dL Assessment and Plan Assessment: day #1. Patient is resting without complaints and wishes to go home. Vital signs are stable she is afebrile. Uterus is firm nontender and she is having normal lochia. My impression is a normal course. Plan is to continue routine care discharge home later today. (1) Small for gestational age fetus Current Visit: No Status: Acute Code(s): NKG1810 - SNOMED Code(s): 028333821 (2) Low amniotic fluid Current Visit: No Status: Acute Code(s): O41.00X0 - OLIGOHYDRAMNIOS, UNSP TRIMESTER, NOT APPLICABLE OR UNSP SNOMED Code(s): 28353178 (3) Group B streptococcal carriage complicating Current Visit: No Status: Acute Code(s): O99.820 - STREPTOCOCCUS B CARRIER STATE COMPLICATING SNOMED Code(s): 619769892732418 (4) 37 weeks gestation of Current Visit: No Status: Acute Code(s): Z3A.37 - 37 WEEKS GESTATION OF SNOMED Code(s): 03850148 (5) Elderly multigravida Current Visit: No Status: Acute Code(s): O09.529 - SUPERVISION OF ELDERLY MULTIGRAVIDA, UNSPECIFIED TRIMESTER SNOMED Code(s): 480542456
--- NOTE | 2021-08-21 06:33 | P.DS ---
Providers Date of admission: 08/20/21 05:35 Expected date of discharge: 08/21/21 Attending physician: Rafael Francois Primary care physician: Stated None - Discharge Diagnosis(es) (1) Small for gestational age fetus Current Visit: No Status: Acute (2) Low amniotic fluid Current Visit: No Status: Acute (3) Group B streptococcal carriage complicating Current Visit: No Status: Acute (4) 37 weeks gestation of Current Visit: No Status: Acute (5) Elderly multigravida Current Visit: No Status: Acute Hospital Course: Please see dictated H&P for intimate details of this patient's admission. Brief summary this pleasant 36-year-old 3 para 2 female estimated gestational age 37-2/7 weeks who presented to labor and delivery for induction of labor secondary to small for gestational age with oligohydramnios. Patient quickly goes on have a vaginal delivery viable male . Please see dictated delivery note. Of note patient did have a ALLERGIC reaction to ampicillin and had no previous known reaction. Patient no further signs or symptoms after the ampicillin was discontinued she was given clindamycin. On day 1 patient continues to well was felt be stable for discharge home follow up with me in 6 weeks. Procedures: Induction of labor and normal vaginal delivery. Patient Condition at Discharge: Good Plan - Discharge Summary Discharge Rx Participant: Yes New Discharge Prescriptions: New Ibuprofen [Motrin] 600 mg PO Q6HR PRN #30 tab PRN Reason: Pain No Action Pnv No.95/Ferrous Fum/Folic AC [ Multivitamin Tablet] 1 tab PO DAILY Discharge Medication List Pnv No.95/Ferrous Fum/Folic AC [ Multivitamin Tablet] 1 tab PO DAILY 03/03/18 [History] Ibuprofen [Motrin] 600 mg PO Q6HR PRN #30 tab 08/21/21 [Rx] Follow up Appointment(s)/Referral(s): Rafael Francois MD [STAFF PHYSICIAN] - 10/10/21 3:00 pm Patient Instructions/Handouts: Vaginal Delivery (DC) Activity/Diet/Wound Care/Special Instructions: No intercourse or anything per vagina for 6 weeks. Please call if any fever, chills, excessive vaginal bleeding, and/or abdominal pain Discharge Disposition: HOME SELF-CARE
[2021-08-21 07:01] LABS: Basophils # (A) 0.1 k/uL (0-0.2); Basophils % (A) 0 %; Eosinophils # (A) 0.2 k/uL (0-0.7); Eosinophils % (A) 1 %; HGB 12.4 gm/dL (11.4-16.0); Lymphocytes # (A) 2.1 k/uL (1.0-4.8); Lymphocytes % (A) 13 %; MCH 31.1 pg (25.0-35.0); MCHC 32.6 g/dL (31.0-37.0); MCV 95.3 fL (80.0-100.0); Mean Platelet Volume 8.8; Monocytes # (A) 0.9 k/uL (0-1.0); Monocytes % (A) 5 %; Neutrophils # (A) 13.1 k/uL (1.3-7.7); Neutrophils % (A) 80 %; Platelet Count 193 k/uL (150-450); RBC 3.99 m/uL (3.80-5.40); RDW 12.8 % (11.5-15.5); WBC 16.5 k/uL (3.8-10.6)
[2021-08-21] MEDS: SENNOSIDES-DOCUSATE SODIUM 1 EACH TAB PO SCH (07:36)
[2021-08-21 08:04] VITALS: PULSE 78
[2021-08-21 12:07] VITALS: BP 101/65; RESP 14; TEMP 98.2
== END 2021-08-21 13:48 | disposition home or self-care (01) | DRG 806 ==
LOC: 4FBP 05:35
PROVIDERS: ADMIT Obstetrics & Gynecology; ATTEND Obstetrics & Gynecology
PROC: 10E0XZZ Delivery of Products of Conception, External Approach (ICD-10-PCS; principal; 2021-08-20)
PROC: 0HQ9XZZ Repair Perineum Skin, External Approach (ICD-10-PCS; 2021-08-20)
PROC: 10907ZC Drainage of Amniotic Fluid, Therapeutic from Products of Conception, Via Natural or Artificial Opening (ICD-10-PCS; 2021-08-20)
PROC: 3E033VJ Introduction of Other Hormone into Peripheral Vein, Percutaneous Approach (ICD-10-PCS; 2021-08-20)
DX: O36.5930 Maternal care for other known or suspected poor fetal growth, third trimester, not applicable or unspecified (principal); O41.03X0 Oligohydramnios, third trimester, not applicable or unspecified; Z37.0 Single live birth; O70.0 First degree perineal laceration during delivery; J45.909 Unspecified asthma, uncomplicated; O69.81X0 Labor and delivery complicated by cord around neck, without compression, not applicable or unspecified; O99.52 Diseases of the respiratory system complicating childbirth; O9A.22 Injury, poisoning and certain other consequences of external causes complicating childbirth; O99.824 Streptococcus B carrier state complicating childbirth; T36.0X5A Adverse effect of penicillins, initial encounter; Z3A.37 37 weeks gestation of pregnancy; Z83.3 Family history of diabetes mellitus; Z87.19 Personal history of other diseases of the digestive system; X58.XXXA Exposure to other specified factors, initial encounter
CPT/HCPCS: 80053; 85025; 86850; 86900; 86901

== ENCOUNTER 2023-04-13 05:56 | Inpatient (IN) | payer BC ==
[2023-04-13] MEDS ORDERED: METHYLERGONOVINE 0.2 MG/ML 1 ML AMP IM PRN (06:06)
[2023-04-13] MEDS ORDERED: miSOPROStoL 200 MCG TAB PO PRN (06:06)
[2023-04-13] MEDS ORDERED: CLINDAMYCIN 900 MG in DEXTROSE 5% IN WATER 50 ML IVPB SCH ×2 (06:06)
[2023-04-13] MEDS ORDERED: TRANEXAMIC 1,000 MG/100ML-NACL 1,000 MG in EMPTY BAG 1 BAG IV PRN (06:06)
[2023-04-13] MEDS ORDERED: OXYTOCIN 30 UNITS/500 ML NS 30 UNIT in SALINE 1 500ML.BAG IV SCH ×2 (06:06→13:49)
[2023-04-13] MEDS ORDERED: CARBOPROST TROMETHAMINE 250 MCG/ML 1 ML AMP IM PRN (06:06)
[2023-04-13] MEDS ORDERED: LIDOCAINE 0.5% (PF) 5 MG/ML (50 ML SDV) SQ PRN (06:06)
[2023-04-13] MEDS ORDERED: TERBUTALINE 1 MG/ML VIAL SQ PRN (06:06)
[2023-04-13] MEDS ORDERED: OXYTOCIN 10 UNIT/ML 1 ML VIAL IM PRN (06:06)
[2023-04-13] MEDS ORDERED: LACTATED RINGERS 1,000 ML IV SCH (06:06)
[2023-04-13 06:26] LABS: Basophils % (A) 0 %; Eosinophils # (A) 0.1 k/uL (0-0.7); Eosinophils % (A) 2 %; HCT 35.7 % (34.0-46.0); HGB 12.6 gm/dL (11.4-16.0); Lymphocytes # (A) 1.8 k/uL (1.0-4.8); Lymphocytes % (A) 19 %; MCH 32.8 pg (25.0-35.0); MCHC 35.2 g/dL (31.0-37.0); Mean Platelet Volume 9.3; Monocytes # (A) 0.4 k/uL (0-1.0); Monocytes % (A) 5 %; Neutrophils # (A) 6.9 k/uL (1.3-7.7); Neutrophils % (A) 73 %; Platelet Count 187 k/uL (150-450); RBC 3.84 m/uL (3.80-5.40); RDW 13.1 % (11.5-15.5); WBC 9.5 k/uL (3.8-10.6)
--- NOTE | 2023-04-13 06:37 | P.HPOB ---
History of Present Illness H&P Date: 04/13/23 Chief Complaint: Elderly , induction of labor This patient is a pleasant 37-year-old 4 para 3 female estimated date of confinement 04/18/2023 estimated gestational age 39-2/7 weeks who presents to labor and delivery for induction of labor. Patient's care is complicated by advanced for maternal age. Patient declined genetic testing or referral to maternal- medicine. She has had normal anatomy ultrasounds and was started on baby aspirin secondary to maternal age and increased risk of preeclampsia. Patient's been followed with growth ultrasounds and nonstress tests. All has been normal. She now presents for delivery. Review of Systems Genitourinary: Reports Menstruation: Reports amenorrhea Past Medical History Past Medical History: Asthma Additional Past Medical History / Comment(s): Esophageal ulcers in childhood, 10 second seizure during last delivery History of Any Multi-Drug Resistant Organisms: None Reported Past Surgical History: No Surgical Hx Reported Additional Past Surgical History / Comment(s): scope for ulcers in childhood Past Anesthesia/Blood Transfusion Reactions: No Reported Reaction Past Psychological History: No Psychological Hx Reported Smoking Status: Never smoker Past Alcohol Use History: None Reported Past Drug Use History: None Reported - Past Family History Mother Family Medical History: Mitral Valve Prolapse (MVP), Musculoskeletal Disorder Father Family Medical History: Diabetes Mellitus Medications and Allergies Home Medications Medication Instructions Recorded Confirmed Type Pnv No.95/Ferrous Fum/Folic AC 1 tab PO DAILY 03/03/18 04/13/23 History [ Multivitamin Tablet] Allergies Allergy/AdvReac Type Severity Reaction Status Date / Time ampicillin Allergy Severe Unknown Verified 04/13/23 06:06 Exam Intake and Output 04/12/23 04/12/23 04/13/23 14:59 22:59 06:59 Other: Weight 86.183 kg - OBG Physical Exam Abdomen: bowel sounds normal, no diffuse tenderness, no bruit present, no guarding noted, no hepatomegaly, no splenomegaly, no mass Vulva: both: normal Vagina: normal moisture, no discharge Cervix: no lesion (Cervix is 3 cm dilated and effaced -2 station), no discharge Uterus: enlarged (Fundal height 38 cm) Results blood work shows she is O positive, rubella immune, RPR is nonreactive, hepatitis B and C were negative, HIV is nonreactive, Glucola was abnormal with a normal three-hour gtt., group B strep was negative, most recent ultrasound showed estimated weight 5 lbs. 5 oz. the 41st percentile. Patient does have a history of positive group B strep with previous . Result Diagrams: 04/13/23 05:47 Assessment and Plan Assessment: This is a pleasant 37-year-old 4 para 3 female 39-2/7 weeks gestation admitted to labor and delivery for induction of labor. Patient is a negative group B strep with a history of positive in previous therefore we'll prophylactically treat with antibiotics. Plan is induction of labor and anticipate vaginal delivery. (1) 39 weeks gestation of Current Visit: Yes Status: Acute Code(s): Z3A.39 - 39 WEEKS GESTATION OF SNOMED Code(s): 87492765 (2) Elderly multigravida Current Visit: No Status: Acute Code(s): O09.529 - SUPERVISION OF ELDERLY MULTIGRAVIDA, UNSPECIFIED TRIMESTER SNOMED Code(s): 170903592
--- NOTE | 2023-04-13 12:14 | P.PROBDLV ---
Vaginal Delivery Note - . Vaginal Delivery Note: Normal vaginal delivery viable male infant Apgars 8 and 9 delivery time is 1157 hrs. Please see dictated H&P for intimate details of this patient's admission. Brief summary is a pleasant 37-year-old 4 para 3 female 39-3/7 weeks gestation who is admitted to labor and delivery for induction of labor. On admission patient's 3 cm dilated has artificial rupture membranes for clear fluid. She is given a dose of clindamycin due to history of positive strep with a previous . Patient's labor is induced with Pitocin. Labor progresses and she gets an epidural for pain control. Patient quickly gets to complete thereafter pushes the head to the perineum. Posterior perineum is supported and we have controlled delivery of the 's head over the intact perineum. Mouth and nares are bulb suctioned. There is a nuchal cord 1 which is easily reduced. The 's anterior shoulder then spontaneously delivers followed by the posterior shoulder and rest this 's body. This is a vigorous viable male Apgars are 8 and 9 delivery time was 1157 hrs. After delivery of the the umbilical cords immediately clamped and cut due to history of jaundice with previous children. is in laid on the mother's abdomen. The placenta is then spontaneously delivered intact. Estimated blood loss is 100 mL. There is a superficial posterior laceration that is reapproximated with a [id number] 03 0 Vicryl stitch excellent reapproximation is noted. All counts are correct 3. There are no complications. and mother stable delivery room.
--- NOTE | 2023-04-13 12:36 | P.ANPRN ---
Procedure Note - Anesthesia - Epidural/Spinal Epidural Continuous Time Out Performed: Yes Date of Procedure: 04/13/23 Procedure Start Time: 10:30 Procedure Stop Time: 10:35 Location of Patient: OB Indication: Acute Post-Operative Pain, Analgesia, Requested by Surgeon Sedation Type: Awake Preparation: Sterile Prep Position: Sitting Catheter Depth at Skin (cm): 10 Catheter: Indwelling Needle Guage: 18 Blood Aspirated: No Pain Paresthesia on Injection Noted: No Events: Uneventful and Well Tolerated (Test dose 1.5 ml of 1% lido with epi----negative S/S)
[2023-04-13] MEDS ORDERED: SIMETHICONE 80 MG CHEWABLE PO PRN (13:49)
[2023-04-13] MEDS ORDERED: bisacodyL 10 MG SUPP RECTAL PRN (13:49)
[2023-04-13] MEDS ORDERED: HYDROCORTISONE 2.5% RECTAL CREAM 30 GM TUBE RECTAL PRN (13:49)
[2023-04-13] MEDS ORDERED: LANOLIN CREAM 5 GM TUBE TOPICAL PRN (13:49)
[2023-04-13] MEDS ORDERED: ZOLPIDEM 5 MG TAB PO PRN (13:49)
[2023-04-13] MEDS ORDERED: BENZOCAINE/MENTHOL SPRAY 1 GM/SPRAY AEROSOL TOPICAL PRN (13:49)
[2023-04-13] MEDS ORDERED: diphenhydrAMINE 50 MG/ML 1 ML VIAL IVP PRN (13:49)
[2023-04-13] MEDS ORDERED: diphenhydrAMINE 25 MG CAP PO PRN (13:49)
[2023-04-13] MEDS: SENNOSIDES-DOCUSATE SODIUM 1 EACH TAB PO SCH ×2 (19:36→21:36)
[2023-04-13] MEDS: IBUPROFEN 600 MG TAB PO PRN (19:36)
[2023-04-13] MEDS: ACETAMINOPHEN TAB 325 MG TAB PO PRN (23:18)
[2023-04-14 00:57] VITALS: TEMP 97.9
[2023-04-14] MEDS: IBUPROFEN 600 MG TAB PO PRN (04:47)
--- NOTE | 2023-04-14 05:55 | P.PNOBGVD ---
Subjective - Subjective Patient reports: Reports appetite normal, Reports voiding normally, Reports pain well controlled, Reports ambulating normally : doing well Objective - Latest Vital Signs Latest vital signs: Vital Signs Temp Pulse Resp BP Pulse Ox 04/14/23 00:00 97.9 F 71 17 97/64 98 04/13/23 20:00 98 F 90 18 98/65 99 04/13/23 16:00 98.0 F 16 04/13/23 14:17 98.2 F 60 16 100/60 04/13/23 13:47 98.2 F 80 16 114/60 04/13/23 13:17 78 16 112/57 04/13/23 13:02 98.2 F 69 16 95/60 04/13/23 12:47 72 16 103/59 04/13/23 12:32 98.5 F 81 16 130/70 04/13/23 12:17 98.1 F 75 16 95/59 Intake and Output 04/13/23 04/13/23 04/14/23 14:59 22:59 06:59 Intake Total 250 Output Total 450 Balance -200 Intake: IV 250 Output: Output, Quantitative 450 Blood Loss Other: # Voids 1 - Exam Lungs: bilateral: normal Chest: Normal S1, Normal S2 Extremities: Present: normal Abdomen: Present: normal appearance, soft Uterus: Present: normal, firm Assessment and Plan Assessment: day #1. Patient is resting without complaints and wishes to go home. Vital signs are stable and she is afebrile. Uterus is firm nontender and she is having normal lochia. CBC is pending. My impression this is a normal course. Plan is to continue routine care discharge home later today (1) 39 weeks gestation of Current Visit: Yes Status: Acute Code(s): Z3A.39 - 39 WEEKS GESTATION OF SNOMED Code(s): 44898785 (2) Elderly multigravida Current Visit: No Status: Acute Code(s): O09.529 - SUPERVISION OF ELDERLY MULTIGRAVIDA, UNSPECIFIED TRIMESTER SNOMED Code(s): 480062083
--- NOTE | 2023-04-14 05:59 | P.DS ---
Providers Date of admission: 04/13/23 05:56 Expected date of discharge: 04/14/23 Attending physician: Rafael Francois Primary care physician: Maria Luisa Grimm - Discharge Diagnosis(es) (1) 39 weeks gestation of Current Visit: Yes Status: Acute (2) Elderly multigravida Current Visit: No Status: Acute Hospital Course: Please see dictated H&P and delivery note on this patient's admission and delivery. Brief summary this pleasant 37-year-old 4 para 3 female admitted to labor and delivery for induction of labor. Patient is uncomplicated induction of labor quickly goes on to have a vaginal delivery viable male . Please see dictated delivery note. day #1 patient's felt to be stable for discharge home follow up with me in 6 weeks. Procedures: Induction of labor and normal vaginal delivery Patient Condition at Discharge: Good Plan - Discharge Summary New Discharge Prescriptions: New Ibuprofen [Motrin] 600 mg PO Q6HR PRN #30 tab PRN Reason: Mild Pain (Scale 1 To 3) No Action Pnv No.95/Ferrous Fum/Folic AC [ Multivitamin Tablet] 1 tab PO DAILY Discharge Medication List Pnv No.95/Ferrous Fum/Folic AC [ Multivitamin Tablet] 1 tab PO DAILY 03/03/18 [History] Ibuprofen [Motrin] 600 mg PO Q6HR PRN #30 tab 04/14/23 [Rx] Follow up Appointment(s)/Referral(s): Rafael Francois MD [STAFF PHYSICIAN] - (Please see me for a visit on 05/26/2023 @9:30 Am) Patient Instructions/Handouts: Vaginal Delivery (DC) Activity/Diet/Wound Care/Special Instructions: No intercourse or anything per vagina for 6 weeks. Please call if any fever, chills, excessive vaginal bleeding, and/or abdominal pain. Discharge Disposition: HOME SELF-CARE
[2023-04-14 07:55] LABS: Basophils # (A) 0.1 k/uL (0-0.2); Basophils % (A) 0 %; Eosinophils # (A) 0.1 k/uL (0-0.7); Eosinophils % (A) 1 %; HCT 35.4 % (34.0-46.0); HGB 12.1 gm/dL (11.4-16.0); Lymphocytes # (A) 1.9 k/uL (1.0-4.8); Lymphocytes % (A) 16 %; MCH 32.5 pg (25.0-35.0); MCHC 34.2 g/dL (31.0-37.0); MCV 95.1 fL (80.0-100.0); Mean Platelet Volume 8.7; Monocytes # (A) 0.5 k/uL (0-1.0); Monocytes % (A) 4 %; Neutrophils % (A) 77 %; Platelet Count 182 k/uL (150-450); RBC 3.73 m/uL (3.80-5.40); WBC 11.7 k/uL (3.8-10.6)
[2023-04-14] MEDS: SENNOSIDES-DOCUSATE SODIUM 1 EACH TAB PO SCH (08:24)
[2023-04-14] MEDS: ACETAMINOPHEN TAB 325 MG TAB PO PRN (08:24)
[2023-04-14 09:27] VITALS: BP 102/67; PULSE 70; RESP 16
== END 2023-04-14 13:15 | disposition home or self-care (01) | DRG 806 ==
LOC: 4FBP 05:56
PROVIDERS: ADMIT Obstetrics & Gynecology; ATTEND Obstetrics & Gynecology
PROC: 10E0XZZ Delivery of Products of Conception, External Approach (ICD-10-PCS; principal; 2023-04-13)
PROC: 3E033VJ Introduction of Other Hormone into Peripheral Vein, Percutaneous Approach (ICD-10-PCS; 2023-04-13)
PROC: 10907ZC Drainage of Amniotic Fluid, Therapeutic from Products of Conception, Via Natural or Artificial Opening (ICD-10-PCS; 2023-04-13)
PROC: 0UQGXZZ Repair Vagina, External Approach (ICD-10-PCS; 2023-04-13)
DX: O69.81X0 Labor and delivery complicated by cord around neck, without compression, not applicable or unspecified (principal); O71.4 Obstetric high vaginal laceration alone; Z37.0 Single live birth; O99.52 Diseases of the respiratory system complicating childbirth; J45.909 Unspecified asthma, uncomplicated; Z87.19 Personal history of other diseases of the digestive system; Z3A.39 39 weeks gestation of pregnancy; Z88.1 Allergy status to other antibiotic agents
CPT/HCPCS: 85025; 86850; 86900; 86901

== ENCOUNTER 2023-07-06 06:41 | Day surgery (SDC) | payer BC ==
--- NOTE | 2023-07-03 06:30 | P.HPOB ---
History of Present Illness H&P Date: 07/03/23 Chief Complaint: High-grade endocervical dysplasia This patient is a pleasant 37-year-old 4 para 4 who has a history of abnormal Pap smears including cannot rule out high risk dysplasia. Patient most recently had a baby and her Pap smear indicated there was a high- grade lesion. Patient's previous colposcopy in the past which showed low-grade changes. Most recent colposcopy however done on June 19 showed an area of high-grade dysplasia of the endocervix. Patient now presents for colposcopy with LEEP excision of this area. Past Medical History Past Medical History: Asthma Additional Past Medical History / Comment(s): Esophageal ulcers in childhood. Patient's had 4 previous vaginal deliveries History of Any Multi-Drug Resistant Organisms: None Reported Past Surgical History: No Surgical Hx Reported Additional Past Surgical History / Comment(s): scope for ulcers in childhood Past Anesthesia/Blood Transfusion Reactions: No Reported Reaction Past Psychological History: No Psychological Hx Reported Smoking Status: Never smoker Past Alcohol Use History: None Reported Past Drug Use History: None Reported - Past Family History Mother Family Medical History: Mitral Valve Prolapse (MVP), Musculoskeletal Disorder Father Family Medical History: Diabetes Mellitus Medications and Allergies Home Medications Medication Instructions Recorded Confirmed Type Pnv No.95/Ferrous Fum/Folic AC 1 tab PO DAILY 03/03/18 07/01/23 History [ Multivitamin Tablet] Ibuprofen [Motrin] 600 mg PO Q6HR PRN #30 tab 04/14/23 07/01/23 Rx Allergies Allergy/AdvReac Type Severity Reaction Status Date / Time ampicillin Allergy Severe Unknown Verified 07/01/23 12:29 Exam - OBG Physical Exam Abdomen: bowel sounds normal, no diffuse tenderness, no bruit present, no guarding noted, no hepatomegaly, no splenomegaly, no mass Vulva: both: normal Vagina: normal moisture, no discharge Cervix: no lesion, no discharge Results Colposcopy on June 19 showed high-grade dysplasia could not be excluded of the endocervix. Assessment and Plan Assessment: This is a pleasant 37-year-old 4 para 4 female with high-grade endocervical dysplasia on colposcopy. Plan is colposcopy with LEEP excision of the ectocervix and endocervix. I've had a long discussion with the patient about the surgery and risks and risks of infection, bleeding, possible cervical incompetence if she ever becomes again. We also discussed possibility of discrepant pathology findings on final pathology and/or positive margins. All the patient's questions are answered and a written consent is obtained. (1) High grade squamous intraepithelial lesion (HGSIL), grade 3 HECTOR, on biopsy of cervix Status: Acute Code(s): D06.9 - CARCINOMA IN SITU OF CERVIX, UNSPECIFIED SNOMED Code(s): 114450127
[~2023-07-06 06:41] MED LIST: HYDROmorphone 0.5 MG/0.5 ML SYRINGE IVP PRN; LIDOCAINE 1% (10MG/ML) FOR IV START INTRADERMA PRN; Pre Op ABX Message 1 EACH MISC MISCELLANE ONE
[2023-07-06] MEDS: LACTATED RINGERS 1,000 ML IV SCH (07:16)
[2023-07-06] MEDS: ONDANSETRON 4 MG/2 ML VIAL IVP ONE (07:37)
[2023-07-06] MEDS: DEXAMETHASONE SOD PHOSPHATE 4 MG/ML 1 ML VIAL IV ONE (07:37)
[2023-07-06] MEDS: MIDAZOLAM 2 MG/2 ML VIAL IV PRN (07:43)
[2023-07-06] MEDS ORDERED: PROPOFOL 10 MG/ML 20 ML VIAL IV ONE (07:48)
[2023-07-06] MEDS ORDERED: SUCCINYLCHOLINE CHLORIDE 200 MG/10 ML VIAL IV ONE (07:48)
[2023-07-06] MEDS ORDERED: LIDOCAINE 1% INJ 10MG/ML (20 ML MDV) ONE (07:48)
[2023-07-06] MEDS ORDERED: fentaNYL (PF) 50 MCG/ML 2 ML AMP ONE (07:48)
[2023-07-06] MEDS: FERRIC SUBSULFATE (MONSELS) JAR TOPICAL ONE ×2 (07:49→08:10)
[2023-07-06] MEDS: IODINE/POTASSIUM IODIDE 14 ML BOTTLE TOPICAL ONE (07:49)
--- NOTE | 2023-07-06 08:18 | P.OP ---
Date of Procedure: 07/06/23 Preoperative Diagnosis: High-grade endocervical dysplasia Postoperative Diagnosis: Same Procedure(s) Performed: Colposcopy with LEEP excision of the ectocervix endocervix Anesthesia: MARKA Surgeon: Rafael Francois Estimated Blood Loss (ml): 10 Urine output (ml): 20 Pathology: other (Ectocervix and endocervix) Condition: stable Disposition: PACU Indications for Procedure: Please see dictated H&P for intimate details of this patient's admission. In brief summary this is a pleasant 37-year-old 4 para 4 female whose had 2 separate occasions of high-grade dysplasia on a Pap smear and colposcopy consistent with endocervical etiology. Patient now presents for LEEP excision of this area. I discussed the surgery and risks with the patient including risks of infection, bleeding, possible cervical incompetence in future pregnancies. All the patient's questions been answered and a written consent is obtained. Operative Findings: This patient had a normal-appearing ectocervix Description of Procedure: This patient is taken to the operating room where she is laid in the supine position. She subsequently undergoes general endotracheal anesthesia without incident. With an adequate level of anesthesia she has a vaginal prep and drape. Examination under anesthesia shows a normal size uterus mid position. The laser speculum was then placed into the vagina. Colposcopy is performed and there is no ectocervical lesions. Using a large LEEP loop on a 60/70 cutting/cautery setting, I make one pass of the ectocervix and remove the entire ectocervical area with the transformation zone. A second pass is made with a small LEEP loop of the entire endocervical area. This tissue is sent separately. This done using a Bovie cautery I cauterize all of the ectocervix endocervical margins. Excellent hemostasis is noted. Monsel solution is applied for added hemostasis. With this done the procedure is ended. Speculum is removed and all counts are correct 3. There are no complications. Patient was taken to the recovery room in satisfactory condition.
[2023-07-06 08:58] VITALS: TEMP 97.4
[2023-07-06] MEDS: KETOROLAC 15 MG/ML 1 ML VIAL IVP ONE (09:06)
[2023-07-06 09:34] VITALS: BP 100/70; PULSE 56; RESP 18
== END 2023-07-06 10:00 | disposition home or self-care (01) ==
LOC: OR 06:41
PROVIDERS: ATTEND Obstetrics & Gynecology
DX: D06.0 Carcinoma in situ of endocervix (principal); J45.909 Unspecified asthma, uncomplicated; N72 Inflammatory disease of cervix uteri; Z88.1 Allergy status to other antibiotic agents
CPT/HCPCS: 81025; 88307; 57522; J2250; J0330; J1100; J2405; J2001; J3010; J1885; J2704